=== PATIENT | male | born 2000 | race Caucasian/White ===

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

== ENCOUNTER 2022-10-27 11:23 | Day surgery (SDC) | payer BC, OTHER ==
--- OUTSIDE RECORDS SUMMARY | 2022-10-27 11:27 | XMS REPORT | Continuity of Care Document ---
:2000 Author Organization [facility] t Address [address] [place] [address] [place] [address] Care Team Providers Name Role Phone Tevin Garcia Primary Care Physician [phone] TONEY Attending Clinician Unavailable TONEY Admitting Clinician Unavailable Payers Payer Name Policy Type Policy Number Effective Date Expiration Date S ource [place] [id number] Problems This patient has no known problems. Allergies, Adverse Reactions, Alerts Allergy Allergy Status Severity Reaction(s) Onset Inactive Treating Comm ents Source Name Type Date Date Clinician Sulfa Propensi Active (Sulfona ty to 06-18 mide adverse 00:00: Antibiot reaction 00 ics) to drug Medications Ordered Filled Start Stop Current Ordering Indication Dosage Frequency Signature Comments Components Source Medication Medication Date Date Medication? Clinician (SIG) Name Name &lt 0 No 11-15 00:00: 00 &lt 2021-0 No 1000 11-15 00:00: 00 Dose 2021-0 No 500 Unknown 11-15 00:00: 00 &lt 2021-0 No 500 11-15 00:00: 00 &lt 2021-0 No 1000 11-15 00:00: 00 Dose 2021-0 No Unknown 11-15 00:00: 00 TAKE 1 2021-0 No 1000 TABLET BY 11-15 MOUTH ONCE 00:00: DAILY 00 &lt 2-0 No 500 11-15 00:00: 00 &lt 2-0 No 11-14 00:00: 00 Dose 2021-0 No 1000 Unknown 11-14 00:00: 00 &lt 2021-0 No 11-14 00:00: 00 Dose 2021-0 No Unknown 7 00:00: 00 Dose 2-0 No Unknown 11-14 00:00: 00 Dose 2021-0 No 1000 Unknown 11-14 00:00: 00 TAKE 1 2021-0 No 1000 TABLET BY 7-21 MOUTH ONCE 00:00: DAILY 00 Levemir 2021-0 No 30(3 FlexTouch 7-20 mL) U-100 00:00: Insulin 100 00 unit/mL (3 mL) subcutaneou s pen &lt 2021-0 No 500 7 00:00: 00 USE 1 2021-0 No SPRAY(S) IN 7-20 EACH 00:00: NOSTRIL 00 ONCE DAILY &lt 2021-0 No 7- 00:00: 00 Dose 2021-0 No 500 Unknown 11-13 00:00: 00 Dose 2021-0 No 1000 Unknown 11-13 00:00: 00 &lt 2-0 No 500 7 00:00: 00 &lt 2021-0 No 7- 00:00: 00 &lt 2021-0 No 1000 11-13 00:00: 00 TAKE 1 2021-0 No 1000 TABLET BY 7-20 MOUTH ONCE 00:00: DAILY 00 &lt 2021-0 No 7 00:00: 00 &lt 2-0 No 500 11-13 00:00: 00 USE 1 2021-0 No SPRAY(S) IN 11-13 EACH 00:00: NOSTRIL 00 ONCE DAILY &lt 2021-0 No 1000 7 00:00: 00 &lt 2021-0 No 7- 00:00: 00 TAKE 1 2021-0 No 1000 TABLET BY 720 MOUTH ONCE 00:00: DAILY 00 Flonase 2021-0 No 1mcg/ac Allergy 6-20 tuation Relief 50 00:00: mcg/actuati 00 on nasal spray,suspe nsion &lt 2021-0 No 6-20 00:00: 00 &lt 2022-0 No 6-20 00:00: 00 &lt 2022-0 No 6-20 00:00: 00 &lt 2022-0 No 6-20 00:00: 00 &lt 2022-0 No 6-19 00:00: 00 &lt 2022-0 No 6-17 00:00: 00 metformin 2022-0 No 1mg 1,000 mg 6-15 tablet 00:00: 00 TAKE 1 2022-0 No TABLET BY 6-15 MOUTH ONCE 00:00: DAILY 00 TAKE 1 2022-0 No TABLET BY 6-15 MOUTH ONCE 00:00: DAILY 00 TAKE 1 2022-0 No TABLET BY 6-15 MOUTH ONCE 00:00: DAILY 00 TAKE 1 2022-0 No TABLET BY 6-15 MOUTH ONCE 00:00: DAILY 00 TAKE 1 2022-0 No TABLET BY 6-15 MOUTH ONCE 00:00: DAILY 00 metformin 2022-0 No 1mg 1,000 mg 2-21 tablet 00:00: 00 metformin 2022-0 No 1mg 500 mg 2-21 tablet 00:00: 00 Dose 2021-1 No Unknown 0-19 00:00: 00 metformin 2021-1 No 1mg 500 mg 0-19 tablet 00:00: 00 metformin 2021-0 No 1mg 1,000 mg 7-18 tablet 00:00: 00 metformin 2021-0 No 1mg 500 mg 7-18 tablet 00:00: 00 metformin 2021-0 No 1mg 500 mg 7-15 tablet 00:00: 00 metformin 2021-0 No 1mg 500 mg 4-19 tablet 00:00: 00 azithromyci 2020-0 No 1mg n 500 mg 7-01 tablet 00:00: 00 fluoxetine 2018-1 No 1mg 10 mg 1-28 tablet 00:00: 00 fluoxetine 2018-1 No 1mg 10 mg 0-15 tablet 00:00: 00 citalopram 2018-0 No 1mg 40 mg 4-02 tablet 00:00: 00 citalopram 2018-0 No 1mg 20 mg 1-29 tablet 00:00: 00 Immunizations Ordered Immunization Filled Immunization Date Status Commen ts Source Name Name Influenza, seasonal, 2018-02-08 Completed inj 00:00:00 Influenza, seasonal, 2017-05-25 Completed inj 00:00:00 meningococcal MCV4P 2016-12-10 Completed 00:00:00 HPV, quadrivalent 2011-11-11 Completed 00:00:00 HPV, quadrivalent 2011-06-26 Completed 00:00:00 HPV, quadrivalent 2011-04-24 Completed 00:00:00 meningococcal MCV4P 2011-04-17 Completed 00:00:00 Tdap 2011-04-17 Completed 00:00:00 Tdap 2011-04-17 Completed 00:00:00 influenza, live, 2011-03-26 Completed intrana 00:00:00 Influenza, seasonal, 2008-06-09 Completed inj 00:00:00 Influenza, seasonal, 2008-05-09 Completed inj 00:00:00 Hep A, ped/adol, 2 dose 2006-11-18 Completed 00:00:00 varicella 2006-11-18 Completed 00:00:00 Hep A, ped/adol, 2 dose 2005-08-01 Completed 00:00:00 Hep A, ped/adol, 2 dose 2004-12-16 Completed 00:00:00 DTaP 2004-03-27 Completed 00:00:00 MMR 2004-03-27 Completed 00:00:00 IPV 2004-03-27 Completed 00:00:00 Hib (PRP-OMP) 2002-03-16 Completed 00:00:00 DTaP 2001-08-30 Completed 00:00:00 MMR 2001-04-14 Completed 00:00:00 varicella 2001-04-14 Completed 00:00:00 DTaP 2000 Completed 00:00:00 Hep B, adolescent or 2000 Completed ped 00:00:00 Hib (PRP-T) 2000 Completed 00:00:00 Pneumococcal conjugate 2000 Completed P 00:00:00 IPV 2000 Completed 00:00:00 DTaP 2000 Completed 00:00:00 Hib (PRP-T) 2000 Completed 00:00:00 Pneumococcal conjugate 2000 Completed P 00:00:00 IPV 2000 Completed 00:00:00 DTaP 2000 Completed 00:00:00 Hep B, adolescent or 2000 Completed ped 00:00:00 Hib (PRP-T) 2000 Completed 00:00:00 Pneumococcal conjugate 2000 Completed P 00:00:00 IPV 2000 Completed 00:00:00 Hep B, adolescent or 2000 Completed ped 00:00:00 Vital Signs Vital Name Observation Time Observation Value Comments Source BP Systolic 2021-11-13 16:00:00 125 mm[Hg] BP Diastolic 2021-11-13 16:00:00 73 mm[Hg] Weight Measured 2021-11-13 16:00:00 177.20 pounds Height Measured 2021-11-13 16:00:00 71.85 inches Body Temperature 2021-11-13 16:00:00 98.40 degrees Heart Rate 2021-11-13 16:00:00 123.00 /min Respiratory Rate 2021-11-13 16:00:00 18.00 /min BP Systolic 2021-10-14 15:23:00 138 mm[Hg] BP Diastolic 2021-10-14 15:23:00 84 mm[Hg] Weight Measured 2021-10-14 15:23:00 183.60 pounds Height Measured 2021-10-14 15:23:00 71.85 inches Body Temperature 2021-10-14 15:23:00 98.00 degrees Heart Rate 2021-10-14 15:23:00 94.00 /min Respiratory Rate 2021-10-14 15:23:00 18.00 /min BP Systolic 2021-10-09 15:42:00 130 mm[Hg] BP Diastolic 2021-10-09 15:42:00 85 mm[Hg] Weight Measured 2021-10-09 15:42:00 187.20 pounds Height Measured 2021-10-09 15:42:00 71.85 inches Body Temperature 2021-10-09 15:42:00 98.10 degrees Heart Rate 2021-10-09 15:42:00 99.00 /min Respiratory Rate 2021-10-09 15:42:00 18.00 /min BP Systolic 2021-06-17 14:06:00 BP Diastolic 2021-06-17 14:06:00 Weight Measured 2021-06-17 14:06:00 190.00 pounds Height Measured 2021-06-17 14:06:00 71.85 inches Body Temperature 2021-06-17 14:06:00 Heart Rate 2021-06-17 14:06:00 Respiratory Rate 2021-06-17 14:06:00 BP Systolic 2021-02-11 14:30:00 125 mm[Hg] BP Diastolic 2021-02-11 14:30:00 75 mm[Hg] Weight Measured 2021-02-11 14:30:00 189.00 pounds Height Measured 2021-02-11 14:30:00 71.85 inches Body Temperature 2021-02-11 14:30:00 98.30 degrees Heart Rate 2021-02-11 14:30:00 75.00 /min Respiratory Rate 2021-02-11 14:30:00 BP Systolic 2020-11-08 16:27:00 121 mm[Hg] BP Diastolic 2020-11-08 16:27:00 70 mm[Hg] Weight Measured 2020-11-08 16:27:00 189.00 pounds Height Measured 2020-11-08 16:27:00 71.85 inches Body Temperature 2020-11-08 16:27:00 98.00 degrees Heart Rate 2020-11-08 16:27:00 84.00 /min Respiratory Rate 2020-11-08 16:27:00 21.00 /min BP Systolic 2020-08-11 13:48:00 146 mm[Hg] BP Diastolic 2020-08-11 13:48:00 91 mm[Hg] Weight Measured 2020-08-11 13:48:00 199.00 pounds Height Measured 2020-08-11 13:48:00 71.85 inches Body Temperature 2020-08-11 13:48:00 98.10 degrees Heart Rate 2020-08-11 13:48:00 97.00 /min Respiratory Rate 2020-08-11 13:48:00 17.00 /min BP Systolic 2018-05-06 15:14:00 132 mm[Hg] BP Diastolic 2018-05-06 15:14:00 77 mm[Hg] Weight Measured 2018-05-06 15:14:00 199.20 pounds Height Measured 2018-05-06 15:14:00 71.85 inches Body Temperature 2018-05-06 15:14:00 98.00 degrees Heart Rate 2018-05-06 15:14:00 79.00 /min Respiratory Rate 2018-05-06 15:14:00 18.00 /min BP Systolic 2018-03-24 10:01:00 113 mm[Hg] BP Diastolic 2018-03-24 10:01:00 67 mm[Hg] Weight Measured 2018-03-24 10:01:00 Height Measured 2018-03-24 10:01:00 Body Temperature 2018-03-24 10:01:00 Heart Rate 2018-03-24 10:01:00 Respiratory Rate 2018-03-24 10:01:00 BP Systolic 2018-03-24 09:48:00 138 mm[Hg] BP Diastolic 2018-03-24 09:48:00 78 mm[Hg] Weight Measured 2018-03-24 09:48:00 203.40 pounds Height Measured 2018-03-24 09:48:00 71.85 inches Body Temperature 2018-03-24 09:48:00 98.70 degrees Heart Rate 2018-03-24 09:48:00 87.00 /min Respiratory Rate 2018-03-24 09:48:00 16.00 /min Procedures This patient has no known procedures. Plan of Care Planned Activity Planned Date Details Comments Source Goal Plan of Care Note [code = 75869-0] Goal Plan of Care Note [code = 44387-6] Goal Plan of Care Note [code = 65064-0] Goal Plan of Care Note [code = 63927-0] Goal Plan of Care Note [code = 05467-7] Goal Plan of Care Note [code = 77932-8] Goal Plan of Care Note [code = 85162-3] Goal Plan of Care Note [code = 64451-3] Goal Plan of Care Note [code = 65546-9] Goal Plan of Care Note [code = 42309-6] Goal Plan of Care Note [code = 11470-4] Goal Plan of Care Note [code = 37710-1] Goal Plan of Care Note [code = 81606-7] Goal Plan of Care Note [code = 43695-9] Goal Plan of Care Note [code = 77104-2] Goal Plan of Care Note [code = 40343-2] Goal Plan of Care Note [code = 17751-2] Goal Plan of Care Note [code = 30877-0] Goal Plan of Care Note [code = 85433-5] Encounters Start End Encounter Admission Attending Care Care Encounter Source Date/Time Date/Time Type Type Clinicians Facility Department ID 2022-10-27 2022-10-27 Outpatient [facility] [id number] Emir 10:53:30 10:53:30 [id number] F Mirza 2022-07-25 2022-07-25 Outpatient [facility] [id number] Emir 16:03:35 16:03:35 0331 F Mirza 2022-05-08 2022-05-08 Outpatient [facility] [id number] Emir 16:10:41 16:10:41 0112 F Mirza 2021-11-13 2021-11-13 Outpatient [id number] 00:00:00 00:00:00 Visit [id number] 2019-10-19 2019-10-19 Outpatient [facility] [id number] [place] 04:05:00 04:05[place] [id number] [facility] 2019-10-18 2019-10-18 Outpatient [facility] [id number] [place] 06:05:00 06:05[place] [id number] [facility] Results Test Description Test Time Test Comments Results Result Comments Source LACTIC ACID, PLASMA 2021-10-11 11:58:50 Test Item Value Reference Range Interpretation Comme nts LACTIC ACID, PLASMA (test code = 2057) 9.7 MG/DL 4.5-19.8 HEMOGLOBIN [id number] 05:13:35 Test Item Value Reference Range Interpretation Comments HEMOGLOBIN A1c (test 11.5 % 4.2-5.6 H AMERIC AN DIABETES code = 34280) ASSOCIATION IDELINES FOR HGB A1C: PREDIABETES/INC REASED RISK . . . . . . . 5 .7-6.4% DIAGNOSIS OF DI ABETES . . . . . . . . . >=6 .5% WITH CONFIRMATION OR APPROPRIATE SYMPTOMS NOTE: ASSAY MAY BE AFFECTED BY HEMOGLOBINOPATH IES (SICKLE CELL ANEMIA, S- C DISEASE, OTHERS) OR LUMA FICIALLY LOWERED BY DECR EASED RED CELL SURVIVAL ( HEMOLYTIC ANEMIAS, BLOOD LOSS, ETC.). CONSIDER ALTERN ATE TESTING OR LABORATORY C ONSULTATION. UNLESS OTHERWIS E INDICATED, ALL TESTING PER FORMED ATCLINICAL PATH [facility] [place] [address] [place] [address] LABORATORY DIRE CTOR: Trenton PARRISH. CLIA NUMBER [id number] CAP ACCREDITATION N O. [id number] COMPREHENSIVE METABOLIC [id number] 03:51:41 Test Item Value Reference Range Interpretation Comments GLUCOSE (test code = 310 MG/DL 70-99 H 2216) BUN (test code = 19 MG/DL 6-20 2207) CREATININE (test 0.71 MG/DL 0.80-1.40 L code = 2214) eGFR (2020 CKD-EPI) 134 >60 (test code = 71282) ML/MIN/1.73 CALC BUN/CREAT (test 27 RATIO 6-28 code = 2235) SODIUM (test code = 136 MEQ/L 785-631 4305) POTASSIUM (test code 4.6 MEQ/L 3.5-5.4 = 2227) CHLORIDE (test code 94 MEQ/L 95-107 L = 2214) CARBON DIOXIDE (test 26 MEQ/L 19-31 code = 220) CALCIUM (test code = 10.6 MG/DL 8.5-10.5 H 2208) PROTEIN, TOTAL (test 7.5 G/DL 6.1-8.3 code = 2228) ALBUMIN (test code = 5.0 G/DL 3.5-5.2 2200) CALC GLOBULIN (test 2.5 G/DL 1.9-3.7 code = 224) CALC A/G RATIO (test 2.0 RATIO 1.0-2.6 code = 2234) BILIRUBIN, TOTAL 0.5 MG/DL See_Comment [Automated message] (test code = 2207) The syste m which generated this result transmit raúl reference range : <=1.2. The refe rence range was not u sed to interpret th is result as normal/abnormal . ALKALINE PHOSPHATASE 109 U/L 44-129 (test code = 2204) AST (test code = 6 U/L 9-50 L 2217) ALT (test code = 11 U/L 5-50 2218) LIPID [id number] 03:51:41 Test Item Value Reference Range Interpretation Comments CHOLESTEROL (test 220 MG/DL <200 H code = 2210) TRIGLYCERIDES (test 223 MG/DL <150 H code = 2232) HDL CHOLESTEROL (test 36 MG/DL >39 L code = 2220) CALC LDL CHOL (test 148 MG/DL <100 H NOTE: C ALCULATED LDL code = 2237) IS BASED ON SHALONDA-EMERY METHOD WHICHINCLUDES ADJUSTABLE TRIGLYCERIDE:VL DL CHOLESTEROL RAT IO.THIS FACTOR VARIES B Y MEASURED TRIGLY CERIDE AND NON-HDLCHOL ESTEROL CONCENTRATIONS WITH INCREASED CALCU LATED LDL SEENIN HIGH ER TRIGLYCERIDE OR LOWER NON-HDL SPECIME NS. FOR MOREINFORMATION , SEE CLIENT ANNOUNCE MENT AT [email or web address] RISK RATIO LDL/HDL 4.11 RATIO <3.55 H (test code = 2238) LIPID [id number] 00:00:00 Test Item Value Reference Range Interpretation Comments CHOLESTEROL (test code = 2210) 220 MG/DL TRIGLYCERIDES (test code = 2232) 223 MG/DL HDL CHOLESTEROL (test code = 2220) 36 MG/DL CALC LDL CHOL (test code = 2237) 148 MG/DL RISK RATIO LDL/HDL (test code = 4.11 RATIO 2238) COMPREHENSIVE METABOLIC [id number] 00:00:00 Test Item Value Reference Range Interpretation Comments GLUCOSE (test code = 2217) 310 MG/DL BUN (test code = 2208) 19 MG/DL CREATININE (test code = 2214) 0.71 MG/DL eGFR (2020 CKD-EPI) (test 134 ML/MIN/1.73 code = 48147) CALC BUN/CREAT (test code = 27 RATIO 2235) SODIUM (test code = 2231) 136 MEQ/L POTASSIUM (test code = 2228) 4.6 MEQ/L CHLORIDE (test code = 2215) 94 MEQ/L CARBON DIOXIDE (test code = 26 MEQ/L 2205) CALCIUM (test code = 2209) 10.6 MG/DL PROTEIN, TOTAL (test code = 7.5 G/DL 2228) ALBUMIN (test code = 2201) 5.0 G/DL CALC GLOBULIN (test code = 2.5 G/DL 2240) CALC A/G RATIO (test code = 2.0 RATIO 2234) BILIRUBIN, TOTAL (test code = 0.5 MG/DL 2206) ALKALINE PHOSPHATASE (test 109 U/L code = 2204) AST (test code = 2218) 6 U/L ALT (test code = 2219) 11 U/L HEMOGLOBIN [id number] 00:00:00 Test Item Value Reference Range Interpretation Comments HEMOGLOBIN A1c (test code = 59656) 11.5 % HEMOGLOBIN [id number] 00:00:00 Test Item Value Reference Range Interpretation Comments HEMOGLOBIN A1c (test code = 76725) 11.5 % LACTIC ACID, [id number] 00:00:00 Test Item Value Reference Range Interpretation Comments LACTIC ACID, PLASMA (test code = 9.7 MG/DL 2056) HEMOGLOBIN [id number] 00:00:00 Test Item Value Reference Range Interpretation Comments HEMOGLOBIN A1c (test code = 66928) 6.1 % HEMOGLOBIN [id number] 00:00:00 Test Item Value Reference Range Interpretation Comments HEMOGLOBIN A1c (test code = 77626) 6.1 % MICROALBUMIN/CREATININE, RANDOM AND [id number] 00:00:00 Test Item Value Reference Range Interpretation Comments CREATININE, URINE, CONC. (test 32.7 MG/DL code = 207) ALBUMIN, URINE, RANDOM (test code <0.2 MG/DL = 09239) CALC ALBUMIN/CREAT, RND (test code <6 MG/G = 28581) COMPREHENSIVE METABOLIC [id number] 00:00:00 Test Item Value Reference Range Interpretation Comments GLUCOSE (test code = 2217) 126 MG/DL BUN (test code = 2208) 18 MG/DL CREATININE (test code = 2214) 0.81 MG/DL eGFR AMER. (test code 148 ML/MIN/1.73 = 73588) eGFR NON- AMER. (test 128 ML/MIN/1.73 code = 95176) CALC BUN/CREAT (test code = 22 RATIO 2235) SODIUM (test code = 2231) 141 MEQ/L POTASSIUM (test code = 2228) 4.3 MEQ/L CHLORIDE (test code = 2215) 98 MEQ/L CARBON DIOXIDE (test code = 28 MEQ/L 2205) CALCIUM (test code = 2209) 9.9 MG/DL PROTEIN, TOTAL (test code = 7.8 G/DL 2228) ALBUMIN (test code = 2201) 5.2 G/DL CALC GLOBULIN (test code = 2.6 G/DL 2239) CALC A/G RATIO (test code = 2.0 RATIO 2234) BILIRUBIN, TOTAL (test code = 0.5 MG/DL 2206) ALKALINE PHOSPHATASE (test 61 U/L code = 2204) AST (test code = 2218) 6 U/L ALT (test code = 2219) 9 U/L HEMOGLOBIN [id number] 00:00:00 Test Item Value Reference Range Interpretation Comments HEMOGLOBIN A1c (test code = 69852) 8.7 % HEMOGLOBIN [id number] 00:00:00 Test Item Value Reference Range Interpretation Comments HEMOGLOBIN A1c (test code = 06839) 8.7 % LIPID [id number] 00:00:00 Test Item Value Reference Range Interpretation Comments CHOLESTEROL (test code = 2210) 136 MG/DL TRIGLYCERIDES (test code = 2232) 74 MG/DL HDL CHOLESTEROL (test code = 2220) 49 MG/DL CALC LDL CHOL (test code = 2237) 72 MG/DL RISK RATIO LDL/HDL (test code = 1.47 RATIO 2237) HEMOGLOBIN [id number] 00:00:00 Test Item Value Reference Range Interpretation Comments HEMOGLOBIN A1c (test code = 19489) 12.3 % HEMOGLOBIN [id number] 00:00:00 Test Item Value Reference Range Interpretation Comments HEMOGLOBIN A1c (test code = 84806) 12.3 % COMPREHENSIVE METABOLIC [id number] 00:00:00 Test Item Value Reference Range Interpretation Comments GLUCOSE (test code = 2217) 369 MG/DL BUN (test code = 2208) 12 MG/DL CREATININE (test code = 2214) 0.79 MG/DL eGFR AMER. (test code 150 ML/MIN/1.73 = 89061) eGFR NON- AMER. (test 129 ML/MIN/1.73 code = 64304) CALC BUN/CREAT (test code = 15 RATIO 2235) SODIUM (test code = 2231) 137 MEQ/L POTASSIUM (test code = 2228) 4.7 MEQ/L CHLORIDE (test code = 2215) 93 MEQ/L CARBON DIOXIDE (test code = 26 MEQ/L 2205) CALCIUM (test code = 2209) 10.0 MG/DL PROTEIN, TOTAL (test code = 7.8 G/DL 2228) ALBUMIN (test code = 220) 5.1 G/DL CALC GLOBULIN (test code = 2.7 G/DL 2239) CALC A/G RATIO (test code = 1.9 RATIO 2233) BILIRUBIN, TOTAL (test code = 0.5 MG/DL 2206) ALKALINE PHOSPHATASE (test 123 U/L code = 2204) AST (test code = 2218) 13 U/L ALT (test code = 2219) 23 U/L [id number] 00:00:00 Test Item Value Reference Range Interpretation Comments TSH, THIRD GENERATION (test code 1.760 UIU/ML = 2821) [id number] 00:00:00 Test Item Value Reference Range Interpretation Comments TSH, THIRD GENERATION (test code 1.760 UIU/ML = 2821) CBC W/AUTO [id number] 00:00:00 Test Item Value Reference Range Interpretation Comments WBC (test code = 1001) 4.4 K/UL RBC (test code = 1002) 4.58 M/UL HEMOGLOBIN (test code = 1003) 15.0 G/DL HEMATOCRIT (test code = 1004) 42.5 % MCV (test code = 1005) 92.8 fL MCH (test code = 1006) 32.8 PG MCHC (test code = 1007) 35.3 G/DL RDW (test code = 1038) 12.7 % NEUTROPHILS (test code = 1008) 66.5 % LYMPHOCYTES (test code = 1010) 21.0 % MONOCYTES (test code = 1011) 11.1 % EOSINOPHILS (test code = 1012) 0.7 % BASOPHILS (test code = 1013) 0.7 % PLATELET COUNT (test code = 1015) 185 K/UL CBC W/AUTO [id number] 00:00:00 Test Item Value Reference Range Interpretation Comments WBC (test code = 1001) 4.4 K/UL RBC (test code = 1002) 4.58 M/UL HEMOGLOBIN (test code = 1003) 15.0 G/DL HEMATOCRIT (test code = 1004) 42.5 % MCV (test code = 1005) 92.8 fL MCH (test code = 1006) 32.8 PG MCHC (test code = 1007) 35.3 G/DL RDW (test code = 1038) 12.7 % NEUTROPHILS (test code = 1008) 66.5 % LYMPHOCYTES (test code = 1010) 21.0 % MONOCYTES (test code = 1011) 11.1 % EOSINOPHILS (test code = 1012) 0.7 % BASOPHILS (test code = 1013) 0.7 % PLATELET COUNT (test code = 1015) 185 K/UL CHLAMYDIA/N. GONORRHOEAE RNA, [id number] 00:00:00 Test Item Value Reference Range Interpretation Comments CHLAMYDIA TRACHOMATIS RNA, TMA, NOT DETECTED UROGENITAL (test code = 94861-5) NEISSERIA GONORRHOEAE RNA, TMA, NOT DETECTED UROGENITAL (test code = 83125-8) COMMENT (test code = ) LIPID PANEL (REFL)[id number] 00:00:00 Test Item Value Reference Range Interpretation Comments CHOLESTEROL, TOTAL (test code 110 mg/dL = 2093-3) HDL CHOLESTEROL (test code = 46 mg/dL 2085-9) TRIGLYCERIDES (test code = 50 mg/dL 2571-8) LDL-CHOLESTEROL (test code = 52 mg/dL(calc) 76435-3) CHOL/HDLC RATIO (test code = 2.4 (calc) 9830-1) NON HDL CHOLESTEROL (test code 64 mg/dL(calc) = 68475-1) COMPREHENSIVE METABOLIC [id number] 00:00:00 Test Item Value Reference Range Interpretation Comments GLUCOSE (test code = 83 mg/dL 2345-7) UREA NITROGEN (BUN) 12 mg/dL (test code = 3094-0) CREATININE (test code = 0.87 mg/dL 2160-0) eGFR NON-AFR. ZAMBIAN DNR mL/min/1.73m2 (test code = 23737-7) eGFR DNR mL/min/1.73m2 (test code = 16680-4) BUN/CREATININE RATIO NOT APPLICABLE (calc) (test code = 3097-3) SODIUM (test code = 138 mmol/L 2951-2) POTASSIUM (test code = 4.3 mmol/L 2823-3) CHLORIDE (test code = 104 mmol/L 2075-0) CARBON DIOXIDE (test 22 mmol/L code = 8-9) CALCIUM (test code = 9.5 mg/dL 62445-0) PROTEIN, TOTAL (test 7.9 g/dL code = 2885-2) ALBUMIN (test code = 5.0 g/dL 1751-7) GLOBULIN (test code = 2.9 g/dL(calc) 02549-2) ALBUMIN/GLOBULIN RATIO 1.7 (calc) (test code = 1759-0) BILIRUBIN, TOTAL (test 0.3 mg/dL code = 1975-2) ALKALINE PHOSPHATASE 52 U/L (test code = 6768-6) AST (test code = 8 U/L 1920-8) ALT (test code = 9 U/L 1742-6) HEMOGLOBIN [id number] 00:00:00 Test Item Value Reference Range Interpretation Comments HEMOGLOBIN A1c (test code = 5.0 [facility] 4548-4) [id number] 00:00:00 Test Item Value Reference Range Interpretation Comments TSH (test code = 3016-3) 1.61 mIU/L HIV 1/2 ANTIGEN/ANTIBODY,FOURTH GENERATION [id number] 00:00:00 Test Item Value Reference Range Interpretation Comments HIV AG/AB, 4TH GEN (test code = NON-REACTIVE 10657-0) COMPREHENSIVE METABOLIC PANEL [ADDED]2017-05-28 00:00:00 Test Item Value Reference Range Interpretation Comments GLUCOSE (test code = 2217) 88 MG/DL BUN (test code = 2208) 14 MG/DL CREATININE (test code = 1.10 MG/DL 2214) eGFR AMER. (test (NOTE) ML/MIN/1.73 code = 45984) eGFR NON- AMER. NO CALC ML/MIN/1.73 (test code = 74203) CALC BUN/CREAT (test code 13 RATIO = 2235) SODIUM (test code = 2231) 143 MEQ/L POTASSIUM (test code = 4.4 MEQ/L 2228) CHLORIDE (test code = 99 MEQ/L 2215) CARBON DIOXIDE (test code 27 MEQ/L = 2206) CALCIUM (test code = 2209) 10.0 MG/DL PROTEIN, TOTAL (test code 8.3 G/DL = 2229) ALBUMIN (test code = 2201) 5.1 G/DL CALC GLOBULIN (test code = 3.2 G/DL 2240) CALC A/G RATIO (test code 1.6 RATIO = 2234) BILIRUBIN, TOTAL (test 0.3 MG/DL code = 2207) ALKALINE PHOSPHATASE (test 68 U/L code = 2204) AST (test code = 2218) 8 U/L ALT (test code = 2219) 11 U/L LIPID PANEL [ADDED]2017-05-28 00:00:00 Test Item Value Reference Range Interpretation Comments CHOLESTEROL (test code = 2210) 124 MG/DL TRIGLYCERIDES (test code = 2232) 131 MG/DL HDL CHOLESTEROL (test code = 2220) 35 MG/DL CALC LDL CHOL (test code = 2237) 63 MG/DL RISK RATIO LDL/HDL (test code = 1.79 RATIO 2238) TSH [ADDED]2017-05-28 00:00:00 Test Item Value Reference Range Interpretation Comments TSH (test code = 2821) 2.230 UIU/ML TSH [ADDED]2017-05-28 00:00:00 Test Item Value Reference Range Interpretation Comments TSH (test code = 2821) 2.230 UIU/ML NOTE: [ADDED]2017-05-28 00:00:00 Test Item Value Reference Range Interpretation Comments NOTE: (test code = 998) (NOTE) GC AND CHLAMYDIA, AMPLIFIED, [id number] 00:00:00 Test Item Value Reference Range Interpretation Comments GONORRHEA, TMA (test code = 58035) NEGATIVE CHLAMYDIA, TMA (test code = 06132) NEGATIVE HIV AB/AG COMBO RFLX [id number] 00:00:00 Test Item Value Reference Range Interpretation Comments HIV 1/2 4TH GEN, RFLX CONF (test NON-REACTIVE code = 3514)
[2022-10-27 12:09] LABS: Absolute Lymphocytes (CBC) 0.8 K/uL (0.7-4.9); Lymphocytes % 8.9 % (15.3-44.8); MCV 88.6 fL (80-100); RBC Red Blood Cell Count 5.31 M/uL (4.33-5.43)
[2022-10-27] MEDS ORDERED: FAMOTIDINE 20 MG/2 ML VIAL IV ONE (12:19)
[2022-10-27] MEDS ORDERED: NA CHLORIDE 0.9% 1,000 ML ONE ×2 (12:19→14:07)
[2022-10-27] MEDS ORDERED: MORPHINE 4 MG/ML SYR ONE ×2 (12:19→13:09)
[2022-10-27] MEDS ORDERED: ONDANSETRON 4 MG/2 ML VIAL ONE ×2 (12:19→15:50)
[2022-10-27 12:27] LABS: Albumin 4.6 g/dL (3.4-5.0); Bilirubin Total 0.8 mg/dL (0.2-1.0); Potassium 3.9 mEq/L (3.5-5.1); Protein, Total 8.3 g/dL (6.4-8.2)
--- NOTE | 2022-10-27 12:41 | RAD REPORT ---
EXAM DESCRIPTION: CT - Abdomen Pelvis W Contrast - 10/27/2022 12:27 pm CLINICAL HISTORY: ABD PAIN COMPARISON: No comparisons TECHNIQUE: Thin cut axial CT imaging of the abdomen and pelvis was performed following intravenous a dministration of 100 mL Isovue 300. Multiplanar reformats were generated and reviewed. All CT scans are performed using dose optimization technique as appropriate and may include automated exposure control or mA/KV adjustment according to patient size. FINDINGS: No suspicious findings in the lung bases. Large lobulated thin walled cystic lesion with wall calcifications in the upper aspect of the spleen measuring 13.0 x 12.4 x 12.1 centimeter. This results in some mass effect in the left upper quadrant, in particular along the gastric fundus. The liver, adrenal glands, and pancreas show no suspicious f indings. Gallbladder and biliary tree are also without suspicious finding. Symmetric renal function is seen with no hydronephrosis or suspicious renal mass. Distended, fluid-filled, and mildly inflamed mid to distal appendix, with a calcified 4 millimeter fo cus at the mid aspect of the appendix, suggestive of an appendicolith. No appreciable fluid collectio ns or extraluminal gas.a No dilated bowel loops or bowel wall thickening. No free air, free fluid or other inflammatory stranding. No hernia, mass or bulky lymphadenopathy. The urinary bladder is withou t significant finding. No suspicious bony findings. IMPRESSION: Evidence of an acute uncomplicated appendicitis with small appendicolith along the mid a spect of the appendix. Large splenic cyst with wall calcifications as above, likely a chronic organized large hematoma. Plea se correlate with patient's symptoms. The findings were communicated to Aston Vasquez on 10/27/2022 at 12:35 hours.
[2022-10-27 12:43] LABS: Urine Bacteria None Seen /HPF (<20); Urine Bilirubin NEGATIVE (Negative); Urine Blood Negative (Negative); Urine Clarity Clear (Clear); Urine Color Light-Yellow (Yellow); Urine Glucose NEGATIVE (Negative); Urine Protein TRACE (Negative); Urine RBC <5 /HPF (None Seen); Urine Urobilinogen Normal (Normal); Urine pH 7.5 (5.0-7.0)
[2022-10-27] MEDS ORDERED: CIPROFLOXACIN 400mg IV 400 MG/200 ML BAG IV ONE (13:10)
[2022-10-27] MEDS ORDERED: METRONIDAZOLE 500mg IVPB 500 MG/100 ML BAG IV ONE (13:10)
--- NOTE | 2022-10-27 13:47 | ER ---
Nurse's Notes [facility] Name: Lambert Chen Age: 22 yrs Sex: Male : 2000 Arrival Date: 10/27/2022 Time: 11:23 Bed 16 Private MD: Diagnosis: Acute appendicitis with localized peritonitis;Lower abdominal pain, unspecified Presentation: 10/27 11:36 Chief complaint: Patient states: sharp abd pain for past 2-3 hours, +nausea, felt like iw he was going to pass out earlier. Coronavirus screen: At this time, the client does not indicate any symptoms associated with coronavirus-19. Ebola Screen: Patient negative for fever greater than or equal to 101.5 degrees Fahrenheit, and additional compatible Ebola Virus Disease symptoms Patient denies exposure to infectious person. Patient denies travel to an Ebola-affected area in the 21 days before illness onset. No symptoms or risks identified at this time. Initial Sepsis Screen: Does the patient meet any 2 criteria? No. Patient's initial sepsis screen is negative. Does the patient have a suspected source of infection? No. Patient's initial sepsis screen is negative. Risk Assessment: Do you want to hurt yourself or someone else? Patient reports no desire to harm self or others. Onset of symptoms was October 27, 2022. 11:36 Method Of Arrival: Ambulatory iw 11:36 Acuity: CRISTOFER 3 iw Triage Assessment: 11:45 General: Appears uncomfortable, Behavior is cooperative, appropriate for age, anxious. bp Pain: Complains of pain in abdomen. EENT: No deficits noted. Neuro: No deficits noted. Cardiovascular: No deficits noted. Respiratory: No deficits noted. GI: Reports lower abdominal pain. : No signs and/or symptoms were reported regarding the genitourinary system. Derm: No deficits noted. Musculoskeletal: No deficits noted. Historical: - Allergies: 11:37 PENICILLINS; iw - PMHx: 11:37 Anxiety; Depression; Diabetes mellitus; iw - Immunization history:: Client reports having NOT received the Covid vaccine. - Social history:: Smoking status: Reported history of juuling and/or vaping. Screenin:45 [facility] ED Fall Risk Assessment (Adult) History of falling in the last 3 months, bp including since admission No falls in past 3 months (0 pts). Abuse screen: Denies threats or abuse. Denies injuries from another. Nutritional screening: No deficits noted. Tuberculosis screening: No symptoms or risk factors identified. Assessment: 11:45 General: SEE TRIAGE NOTE. bp 12:35 Reassessment: PT RETURNED FROM CT. bp 13:49 Reassessment: PT KRISTINE TO OR. bp Vital Signs: 11:36 BP 140 / 87; Pulse 83; Resp 16; Temp 98; Pulse Ox 100% on R/A; Weight 92.99 kg; Height bp 6 ft. 0 in. ; Pain 8/10; 13:49 BP 126 / 74; Pulse 66; Resp 16; Pulse Ox 99% ; bp 11:36 Body Mass Index 27.80 (92.99 kg, 182.88 cm) bp 11:36 Pain Scale: Adult bp ED Course: 11:24 Patient arrived in ED. im 11:25 Aston Vasquez MD is Attending Physician. kdr 11:30 Karlo Gomez, DEENA is Primary Nurse. bp 11:37 Triage completed. iw 11:38 Arm band placed on. iw 11:45 Patient has correct armband on for positive identification. Bed in low position. Call bp light in reach. Side rails up X2. Adult w/ patient. 11:57 Inserted saline lock: 20 gauge in left antecubital area, using aseptic technique. Blood rs5 collected. 11:57 CBC with Diff Sent. rs5 11:57 CMP Sent. rs5 11:57 Lipase Sent. rs5 12:29 CT Abd/Pelvis - IV Contrast Only In Process Unspecified. EDMS 13:45 Fernando Morris MD is Hospitalizing Provider. kdr 13:50 No provider procedures requiring assistance completed. Patient admitted, IV remains in bp place. Administered Medications: 12:16 Drug: morphine IVP or IV 4 mg Route: IVP; Infused Over: 4 mins; Site: left antecubital; bp 13:51 Follow up: Response: No adverse reaction bp 12:16 Drug: Ondansetron IVP 4 mg Route: IVP; Site: left antecubital; bp 13:51 Follow up: Response: No adverse reaction bp 12:16 Drug: Famotidine IVP 20 mg Route: IVP; Site: left antecubital; bp 13:51 Follow up: Response: No adverse reaction bp 12:16 Drug: NS 0.9% IV 1000 ml Route: IV; Rate: 1 bolus; Site: left antecubital; bp 13:51 Follow up: IV Status: Completed infusion; IV Intake: 1000ml bp 13:16 Drug: metroNIDAZOLE IVPB 500 mg Volume: 100 ml; Route: IVPB; Rate: 200 ml/hr; Infused bp Over: 30 mins; Site: left antecubital; 13:50 Follow up: IV Status: Completed infusion; IV Intake: 100ml bp 13:16 Drug: morphine IVP or IV 4 mg Route: IVP; Infused Over: 4 mins; Site: left antecubital; bp 13:50 Follow up: Response: No adverse reaction bp 13:48 Drug: Ciprofloxacin IVPB 400 mg Volume: 200 ml; Route: IVPB; Infused Over: 60 mins; bp Site: left forearm; 13:50 Follow up: IV Status: Completed infusion; IV Intake: 200ml bp 13:49 Drug: Promethazine IVP 12.5 mg Route: IVP; Site: left antecubital; bp 13:50 Follow up: Response: No adverse reaction bp Medication: 11:45 VIS not applicable for this client. bp Intake: 13:50 IV: 200ml; Total: 200ml. bp 13:50 IV: 100ml; Total: 300ml. bp 13:51 IV: 1000ml; Total: 1300ml. bp Outcome: 13:46 Decision to Hospitalize by Provider. kdr 13:49 Admitted to OR accompanied by nurse, family with patient, via wheelchair. bp 13:49 Condition: stable 13:49 Instructed on the need for admit. 14:01 Patient left the ED. iw Signatures: Dispatcher [employer] EDMS Aston Vasquez MD MD kdr Williams, Irene, RN RN Karlo Gomez RN RN Timothy Cunningham rs5 Chitra Morrell Corrections: (The following items were deleted from the chart) 11:47 11:36 Pulse 83bpm; Resp 16bpm; Pulse Ox 100% RA; 92.99 kg; Height 6 ft. 0 in.; BMI: bp 27.8; Pain 8/10, Adult; iw 11:52 11:36 BP 140 / 87; Pulse 83bpm; Resp 16bpm; Pulse Ox 100% RA; 92.99 kg; Height 6 ft. 0 bp in.; BMI: 27.8; Pain 8/10, Adult; bp
--- NOTE | 2022-10-27 13:47 | EDPHYS ---
Physician Documentation [facility] Name: Lambert Chen Age: 22 yrs Sex: Male : 2000 Arrival Date: 10/27/2022 Time: 11:23 Bed 16 Private MD: ED Physician Aston Vasquez HPI: 10/27 13:42 This 22 yrs old Male presents to ER via Ambulatory with complaints of Abdominal Pain. kdr 13:42 Patient's had acute onset of abdominal pain earlier this morning but became acutely kdr worse about 2 or 3 hours prior to arrival. Patient has nausea but no vomiting times he felt like he was going to pass out secondary to the pain. Patient has not had anything like this before. Patient is otherwise in his usual state of health.. Onset: The symptoms/episode began/occurred suddenly, this morning. Severity of symptoms: At their worst the symptoms were severe incapacitating in the emergency department the symptoms have improved mildly. The patient has not experienced similar symptoms in the past. The patient has not recently seen a physician. Historical: - Allergies: 11:37 PENICILLINS; iw - PMHx: 11:37 Anxiety; Depression; Diabetes mellitus; iw - Immunization history:: Client reports having NOT received the Covid vaccine. - Social history:: Smoking status: Reported history of juuling and/or vaping. ROS: 13:42 Constitutional: Negative for fever, chills, and weight loss, Eyes: Negative for injury, kdr pain, redness, and discharge, ENT: Negative for injury, pain, and discharge, Neck: Negative for injury, pain, and swelling, Cardiovascular: Negative for chest pain, palpitations, and edema, Respiratory: Negative for shortness of breath, cough, wheezing, and pleuritic chest pain, Back: Negative for injury and pain, : Negative for injury, bleeding, discharge, and swelling, MS/Extremity: Negative for injury and deformity, Skin: Negative for injury, rash, and discoloration, Neuro: Negative for headache, weakness, numbness, tingling, and seizure activity. Psych: Negative for depression, anxiety, suicide ideation, homicidal ideation, and hallucinations, Allergy/Immunology: Negative for hives, rash, and allergies, Endocrine: Negative for neck swelling, polydipsia, polyuria, polyphagia, and marked weight changes, Hematologic/Lymphatic: Negative for swollen nodes, abnormal bleeding, and unusual bruising. 13:42 Abdomen/GI: Positive for abdominal pain, nausea, Patient had a normal bowel movement this morning without relationship to his pain. Exam: 13:42 Constitutional: This is a well developed, well nourished patient who is awake, alert, kdr and in no acute distress. Head/Face: Normocephalic, atraumatic. Eyes: Pupils equal round and reactive to light, extra-ocular motions intact. Lids and lashes normal. Conjunctiva and sclera are non-icteric and not injected. Cornea within normal limits. Periorbital areas with no swelling, redness, or edema. Neck: Trachea midline, no thyromegaly or masses palpated, and no cervical lymphadenopathy. Supple, full range of motion without nuchal rigidity, or vertebral point tenderness. No Meningismus. Chest/axilla: Normal chest wall appearance and motion. Nontender with no deformity. No lesions are appreciated. Cardiovascular: Regular rate and rhythm with a normal S1 and S2. No gallops, murmurs, or rubs. Normal PMI, no JVD. No pulse deficits. Respiratory: Lungs have equal breath sounds bilaterally, clear to auscultation and percussion. No rales, rhonchi or wheezes noted. No increased work of breathing, no retractions or nasal flaring. Back: No spinal tenderness. No costovertebral tenderness. Full range of motion. Skin: Warm, dry with normal turgor. Normal color with no rashes, no lesions, and no evidence of cellulitis. MS/ Extremity: Pulses equal, no cyanosis. Neurovascular intact. Full, normal range of motion. Neuro: Awake and alert, GCS 15, oriented to person, place, time, and situation. Cranial nerves II-XII grossly intact. Motor strength 5/5 in all extremities. Sensory grossly intact. Cerebellar exam normal. Normal gait. Psych: Awake, alert, with orientation to person, place and time. Behavior, mood, and affect are within normal limits. 13:42 Abdomen/GI: Inspection: abdomen appears normal, Bowel sounds: active, all quadrants, Palpation: soft, moderate abdominal tenderness, in the right lower quadrant and abdomen diffusely, rebound tenderness, is appreciated in the right lower quadrant, voluntary guarding, is elicited in the right lower quadrant, Indicators: McBurney's point is tender. Vital Signs: 11:36 BP 140 / 87; Pulse 83; Resp 16; Temp 98; Pulse Ox 100% on R/A; Weight 92.99 kg; Height bp 6 ft. 0 in. ; Pain 8/10; 13:49 BP 126 / 74; Pulse 66; Resp 16; Pulse Ox 99% ; bp 11:36 Body Mass Index 27.80 (92.99 kg, 182.88 cm) bp 11:36 Pain Scale: Adult bp MDM: 13:46 Patient medically screened. kdr 13:46 Data reviewed: vital signs, nurses notes, lab test result(s), radiologic studies. I kdr considered the following discharge prescriptions or medication management in the emergency department Medications were administered in the Emergency Department. See MAR. Discussion of test interpretation with radiology: I had a discussion with radiology regarding a test interpretation. Radiologist called me with the results showing acute appendicitis. 10/27 11:45 Order name: CBC with Diff; Complete Time: 12:44 kdr 10/27 11:45 Order name: CMP; Complete Time: 12:44 kdr 10/27 11:45 Order name: Lipase; Complete Time: 12:44 kdr 10/27 11:45 Order name: Urinalysis w/ reflexes; Complete Time: 12:44 kdr 10/27 12:07 Order name: CT Abd/Pelvis - IV Contrast Only; Complete Time: 12:44 kdr 10/27 11:45 Order name: IV Saline Lock; Complete Time: 11:57 kdr 10/27 11:45 Order name: Labs collected and sent; Complete Time: 11:57 kdr Administered Medications: 12:16 Drug: morphine IVP or IV 4 mg Route: IVP; Infused Over: 4 mins; Site: left antecubital; bp 13:51 Follow up: Response: No adverse reaction bp 12:16 Drug: Ondansetron IVP 4 mg Route: IVP; Site: left antecubital; bp 13:51 Follow up: Response: No adverse reaction bp 12:16 Drug: Famotidine IVP 20 mg Route: IVP; Site: left antecubital; bp 13:51 Follow up: Response: No adverse reaction bp 12:16 Drug: NS 0.9% IV 1000 ml Route: IV; Rate: 1 bolus; Site: left antecubital; bp 13:51 Follow up: IV Status: Completed infusion; IV Intake: 1000ml bp 13:16 Drug: metroNIDAZOLE IVPB 500 mg Volume: 100 ml; Route: IVPB; Rate: 200 ml/hr; Infused bp Over: 30 mins; Site: left antecubital; 13:50 Follow up: IV Status: Completed infusion; IV Intake: 100ml bp 13:16 Drug: morphine IVP or IV 4 mg Route: IVP; Infused Over: 4 mins; Site: left antecubital; bp 13:50 Follow up: Response: No adverse reaction bp 13:48 Drug: Ciprofloxacin IVPB 400 mg Volume: 200 ml; Route: IVPB; Infused Over: 60 mins; bp Site: left forearm; 13:50 Follow up: IV Status: Completed infusion; IV Intake: 200ml bp 13:49 Drug: Promethazine IVP 12.5 mg Route: IVP; Site: left antecubital; bp 13:50 Follow up: Response: No adverse reaction bp Disposition Summary: 10/27/22 13:46 Hospitalization Ordered Hospitalization Status: Observation kdr Provider: Fernando Morris Location: Operating Room kdr Condition: Fair kdr Problem: new kdr Symptoms: have improved kdr Bed/Room Type: Standard kdr Room Assignment: kdr Diagnosis - Acute appendicitis with localized peritonitis kdr - Lower abdominal pain, unspecified kdr Forms: - Medication Reconciliation Form kdr - SBAR form kdr Signatures: Dispatcher [employer] EDMS Aston Vasquez MD MD kdr Masha Flynn, DEENA RN iw Karlo Gomez RN RN bp
[2022-10-27] MEDS ORDERED: PROMETHAZINE INJ 25 MG/ML AMP ONE (13:53)
[2022-10-27] MEDS ORDERED: BUPIVACAINE 0.25% PF 30 ML VIAL ONE (15:07)
[2022-10-27] MEDS ORDERED: FENTANYL CITR 100 MCG/2 ML ONE (15:49)
[2022-10-27] MEDS ORDERED: propofoL 200 MG/20 ML VIAL IV ONE (15:49)
[2022-10-27] MEDS ORDERED: MIDAZOLAM HCL 2 MG/2 ML INJ ONE (15:50)
[2022-10-27] MEDS ORDERED: ROCURONIUM 50 MG/5 ML VIAL IV ONE (15:50)
[2022-10-27] MEDS ORDERED: dexAMETHasone 10 MG/ML VIAL ONE (15:50)
[2022-10-27] MEDS ORDERED: KETOROLAC 30 MG/ML INJ ONE (15:50)
[2022-10-27] MEDS ORDERED: LIDOCAINE 2% MPF 5 ML VIAL ONE (15:51)
[2022-10-27] MEDS ORDERED: INSULIN -REGULAR HUMAN 50 UNIT/0.5 ML ML ONE (15:57)
[2022-10-27] MEDS ORDERED: SUCCINYLCHOLINE 20 MG/ML (10 ML) IV ONE (15:57)
--- NOTE | 2022-10-27 16:52 | P.OP ---
Preoperative diagnosis: Acute Appendicitis Postoperative diagnosis: Acute Appendicitis Primary procedure: Laparoscopic Appendectomy Anesthesia: GETA + Local Estimated blood loss: <10cc Specimen: Vermiform Appendix Findings: Acute non-perforated appendicitis Complications: None Transferred to: Recovery Room Condition: Good
[2022-10-27] MEDS ORDERED: GLYCOPYRROLATE 0.2 MG/ML SYR ONE (16:53)
[2022-10-27] MEDS ORDERED: NEOSTIGMINE 1 MG/ML -10 ML VIAL ONE (16:53)
[2022-10-27 17:38] VITALS: BP 134/73; TEMP 98.2; O2SAT 99
[2022-10-27] MEDS ORDERED: HYDROCODONE/APAP 10/325 TAB ONE (17:54)
--- NOTE | 2022-10-27 18:22 | OP ---
Date of Procedure: 10/27/2022 Surgeon: Fernando Morris MD, Preoperative Diagnosis: Acute appendicitis. Postoperative Diagnosis: Acute appendicitis. Procedure Performed: Laparoscopic appendectomy. Anesthesia: General endotracheal plus local with 0.25% Marcaine. Estimated Blood Loss: Less than 10 cc. Specimen: Vermiform appendix. Findings: Acute nonperforated appendicitis, significant inflammatory changes and adhesions between t he lateral abdominal wall and between the appendix and the cecum in a redundant type fashion with ban ds going across the distal aspect of the appendix back to the anterior surface of the cecum. Complications: None. Disposition: The patient was transferred to the recovery room in good condition. Procedure In Detail: After informed consent was obtained, the patient was brought to the operating r oom, prepped and draped in the usual sterile fashion after adequate anesthesia was achieved. I anest hetized the area in the infraumbilical skin down to subcutaneous tissues. I then made a small sharp incision at this point and introduced a 5 mm 0-degree optical trocar under direct visualization witho ut evidence of complication. Insufflation was obtained to 15 mmHg at this time. There was no injury to vital structures upon entry into the abdomen. Two additional trocars were placed, 1 in the right lower quadrant and 1 in the left lower quadrant. Both of these 5 mm trocars were placed under direc t visualization without evidence of complication. The infraumbilical was then upsized to a 12 mm und er direct visualization without evidence of complication. The patient was positioned head down right side up position. Ratcheted grasper was used to grasp the patient's appendix and found to be suppur ative changes with no evidence of acute perforation. I took down the lateral attachments using the L igaSure device and took down the attachments from the appendix to the cecum using electrocautery as w ell. A mesoappendiceal window was created at this point. Endo CONSUELO 60 purple load fired across the b ase of the appendix with good approximation of tissues. I then used the LigaSure device to take the mesoappendix down, placed in EndoCatch bag, removed the umbilical trocar, and sent off for pathologic examination. I then copiously irrigated the area and inspected. The cecum found to be in good angie omic position without any evidence of injury. Staple line was found to be in good position at this p oint. I copiously irrigated the patient's abdomen and pelvis, suctioned out until completely dry. T he patient was positioned back in neutral position. I suctioned out the remaining effluent. I then closed the 12 mm trocar site using a Jaciel-Kasie suture passer with 0 Vicryl in an interrupted fa shion with good approximation of tissues. The abdomen was then completely desufflated under direct v ision without evidence of complication. The remaining trocars were removed. All skin incisions were then copiously irrigated and closed with a 4-0 Monocryl in a running fashion. Dermabond was placed over top. The patient tolerated the procedure well without evidence of complication and transferred to PACU in good condition. All counts were correct at the end of the case. GLYNN/SAUL Voice ID: [id number] Report ID: [id number]
--- NOTE | 2022-10-27 19:58 | HP ---
Date of Admission: 10/27/2022 Brief History Of Present Illness: The patient is a 22-year-old male who presents with periumbilical, now right lower quadrant abdominal pain beginning approximately 3 a.m. this morning. It got signifi cantly worse, associated with nausea, vomiting, and the pain significantly got worse and described as sharp, stabbing, and located in the right lower quadrant after moving from the periumbilical positio n. He has never had similar episodes before in the past. No sick contacts. No recent travel. No n ew food exposures. He has not had any other gut changes, gastrointestinal symptoms. He has subjecti ve fever and chills associated with this. No other signs or symptoms associated. Past Medical History: Significant for diabetes. Past Surgical History: Denies. Allergies: TO PENICILLIN AND BACTRIM/SULFA. Medications: None. Social History: He vapes. Denies alcohol and recreational drug use. Review of Systems: Ten-point review of systems other than HPI, denies. Physical Examination: At the time of my examination: General: He is awake, alert, and oriented. Psychiatric: He is appropriate and conversive. HEENT: He is normocephalic. Sclerae anicteric. Mucous membranes are moist. Oropharynx clear. Neck: Supple without JVD. Chest: Expansion and excursion. Cardiovascular: Regular rate and rhythm. Pulmonary: Clear to auscultation bilaterally. Abdomen: Soft with positive right lower quadrant focal peritonitis, positive guarding, positive rebo und at McBurney's point. Laboratory Data: Reveals a white blood cell count of 9.4, hemoglobin 15.9, hematocrit of 47.0, plate let count 209, neutrophils 83%. His sodium 133, potassium 3.9, chloride 102, carbon dioxide 26, BUN 16, creatinine 0.85, glucose is 223, total bilirubin 0.8, AST 9, ALT 46, alkaline phosphatase 59, his lipase is 16. His UA was essentially negative. He had a CT scan performed of the abdomen and pelvi s, officially read as evidence of an acute uncomplicated appendicitis with a small appendicolith aditi g the mid aspect of the appendix. Large splenic cyst with wall calcifications above likely chronic o rganized large hematoma. Please correlate with patient's symptoms. Assessment And Plan: This is a 22-year-old male who comes in with signs and symptoms of acute nonper forated appendicitis. 1.IV fluid hydration. 2.Antibiotic coverage. Patient has been given Cipro and Flagyl. 3.I have explained risks, benefits, and alternatives of laparoscopic possible open appendectomy incl uding, but not limited to, bleeding, infection, damage to surrounding tissue, need for further operat darlene procedures, injury to intestines, problems related to the perioperative period including but not limited to, blood clots, heart attack, strokes, and perioperative complication related to anesthesia medications, unforeseen complications. Patient agrees to proceed as indicated. GLYNN/SAUL Voice ID: [id number]
== END 2022-10-27 18:28 | disposition home or self-care (01) ==
LOC: ER 11:23 → DS 18:03
PROVIDERS: ATTEND Emergency Medicine
PROC: 0DTJ4ZZ Resection of Appendix, Percutaneous Endoscopic Approach (ICD-10-PCS; principal; 2022-10-27 17:45)
DX: K37 Unspecified appendicitis (principal); Z88.0 Allergy status to penicillin; Z88.1 Allergy status to other antibiotic agents; Z88.2 Allergy status to sulfonamides
CPT/HCPCS: 85025; 81001; 36415; 82947 ×2; 88304; 83690; 80053; 74177; 99285; 44970; Q9967; J2550; J1815; J2704; J2710; J2001; J2250; J3010; J1100; J2405 ×2; J0744; J7030 ×2; 96361; 96365; 96375